=== PATIENT | male | born 2000 | race Caucasian/White ===

== ENCOUNTER 2022-06-07 10:00 | Outpatient (RCR) | payer OTHER, SELFPAY ==
--- NOTE | 2021-08-10 13:57 | MHC.SP.ADU ---
Referring provider: Andrzej Cosme MD Reason for Referral: Stuttering Type of Treatment: 21392 Evaluation of Speech Fluency Date of Plan of Treatment: 08/09/21 Onset of Symptoms/Illness: 04/24/02 Date Treatment Started: 08/09/21 Medical Diagnosis: N/A Primary Speech Language Diagnosis: R47.82 Fluency History Christos is a 20 year old male referred for a speech evaluation by Andrzej Cosme MD due to concerns pertaining to his fluency. Christos was accompanied to this evaluation by his mother, who assisted in providing background information. 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 Infancy was marked by low weight, NICU stay for 2.5 months, breathing problems, jaundice, feeding difficulties, and placement of a feeding tube. Christos was evaluated by an [facility] hospital superintendent when he was 11 years old and was diagnosed with Central Auditory Processing Disorder at that time based on ?his difficulties with auditory closure, binaural separation, and binaural integration. Christos reports he is generally healthy without any new medical diagnoses. Christos?s participation in speech therapy is extensive, dating back to Early Intervention. Christos?s mother recalls that he had begun to stutter at 18-24 months old, and reported that there is history of stuttering in the family. Per Christos, he continued with speech therapy through elementary, middle, and high school. Christos then participated in outpatient speech therapy at the [facility] from June 2018-December 2019. Christos has since graduated high school, began attending college at [employer], and has gotten a job. Christos reports that, in the last one to two years, his stuttering has become a lot worse and believes that the isolation during this pandemic is a contributing factor. He stated that it is difficult for him to get a full sentence out, especially when the listener appears to be impatient. Christos reports that at times, he avoids certain speaking situations, such as talking on the phone, because he knows it will cause him trouble. Reported Speech, Language, Cognition difficulties: Speaking Comments: Fluency Assessment FLUENCY: Speech samples were collected during this evaluation and analyzed using the Stuttering Severity Instrument ? 4th Edition (SSI-4). Christos was provided with a written paragraph and was instructed to read aloud. A speaking sample was also collected during a picture description task. Reading and speaking samples were recorded, transcribed, and analyzed for frequency and type of disfluencies, detailed below: READING SAMPLE: Stuttering Events: 38 Number of Syllables: 378 Percent of Stuttered Syllables (%SS): 10.05% Analysis of Disfluency Type (Reading Sample): Interjections (i.e. uhm, uh): 0% Sound/Syllable Repetitions: 31.6% Word Repetitions: 7.9% Phrase Repetitions: 7.9% Revision: 0% Block: 42.1% Sound Prolongation: 10.5% SPEAKING SAMPLE: Stuttering Events: 21 Number of Syllables: 150 Percent of Stuttered Syllables (%SS): 14% Analysis of Disfluency Type (Speaking Sample): Interjections (i.e. uhm, uh): 4.8% Sound/Syllable Repetitions: 28.6% Word Repetitions: 4.8% Phrase Repetitions: 9.5% Revision: 0% Block: 52.4% Sound Prolongation: 0% FREQUENCY SCORE: 15 DURATION SCORE: 6 PHYSICAL CONCOMITANTS SCORE: 4 TOTAL SCORE: 25 PERCENTILE: 41-60 SEVERITY: MODERATE Christos?s dysfluencies are characterized by blocking (i.e. holding of articulatory posture with tension and pausing), sound prolongations (i.e. ?sssss-tudying?), part-word repetitions (i.e. sound repetitions such as ?i-f-h-forklift? and syllable repetitions such as ?al-al-also?), whole word repetitions (i.e. ?its-its-its?), and phrase repetitions (i.e. ?and there?s-and there?s?). These stuttering events contributed to unnatural pausing, halted his speech flow, and significantly impacted his perceived speech naturalness. Also noted oddities in the coordination of breathing for speech. Christos?s mother corroborated these observations, stating, ?Christos seems to take more pauses to breathe in during a sentence.? Christos presented with a moderately rapid rate of speech. Christos was observed to stutter more during a reading task versus a speaking task, as the words in the written text were obligatory. Christos presented with minimal physical concomitants, which could be barely noticeable to a casual observer. This included the avoidance of eye contact and presence of visible jaw tension. Secondary behaviors are triggered by the experience of stuttering or anticipation of it. Although individuals who stutter use them in an attempt to terminate the stutter, they are often maladaptive and exacerbate core disfluent behaviors. 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 This has a strong impact on his socioemotional wellbeing. Therefore, it is recommended that he participate in 1:1 speech and language intervention 1x weekly for 8 weeks to practice strategies for improved fluency. Recommendation for Speech Therapy: Outpatient Speech Therapy Frequency/Duration: 1x weekly x 8 weeks Date Range for Service Requested: Time to Reassess: 6 months Technology Engineer Goals: Christos will increase his overall fluency and speech naturalness. Short Term Goals: Goal # : 1.1. Christos will participate in ongoing education and discussion regarding developmental stuttering throughout his course in treatment with 100% participation. Goal Status: New Goal Goal# : 1.2. Christos will be able to correctly identify location of physical tension during 80% of stuttering episodes in a structured task. Goal Status: New Goal Goal # : 1.3. Christos will improve his overall fluency during highly structured practice (in the production of short phrases and sentences) utilizing fluency shaping techniques (diaphragmatic breathing, slowing rate of speech, light articulatory contact, stretching) in 4 out of 5 trials with moderate level cueing and models. Goal Status: New Goal Goal # : 1.4. Christos will improve his overall fluency during highly structured practice (in the production of short phrases and sentences) utilizing stuttering modification techniques (cancellation, pull-out, preparatory set) in 4 out of 5 trials with moderate level cueing and models. Goal Status: New Goal Patient Education: Completed: Yes Patient/Caregiver Education: Described Results of Evaluation Patient expressed understanding of evaluation Family/Caregivers expressed understanding of results Comments/Barriers to Learning: It was a pleasure to work with Christos. If you have any questions about the contents of this report, do not hesitate to contact me at [phone] or [email or web address]. Engraver Apprentice Decorative Clinican/Clinical Fellow: No Supervisory Statement: N/A Speech Language Pathologist: Jojo Chu M.A., CCC-CLAIM MANAGER
== END 2022-07-07 12:43 | disposition home or self-care (01) ==
LOC: HO.SH 10:00
PROVIDERS: Visit Provider Pediatrics
DX: F80.81 Childhood onset fluency disorder (principal)
CPT/HCPCS: 92507; 92521

== ENCOUNTER 2023-01-16 10:03 | Outpatient (AMB) | payer OTHER, SELFPAY ==
--- NOTE | 2023-01-16 11:52 | MHC.OFFWIV ---
Intake Vital Signs 01/16/23 12:00 Height 5 ft 8 in Weight 59.874 kg BMI 20.1 BP 126/78 Blood Pressure Location Lt brachial Position Sitting Pulse 79 Pulse Source Pulse Oximeter Temp 97.9 F Temp Source Oral Pulse Oximetry (%) 94 Oxygen Delivery Method Room Air Intake Visit Reasons: EP, left ear pain [phone] Intake Note: Patient is here todat for Lt ear pain, pt states it started Monday night Patient Tobacco Use Status: Never used Tobacco Allergies No Known Allergies Allergy (Verified 01/16/23 11:53) Do you need a note to return to daycare/school/sports/work: No HPI EP, left ear pain [phone] HPI Details Patient presents with a reduced hearing, pain and fullness sensation in the left ear. He also notes some redness behind the ear with tenderness. He denies congestion or upper respiratory symptoms no symptoms in the right ear. Denies fever, ear drainage, ear trauma. PFSH Social History Patient Tobacco Use Status: Never used Tobacco Review of Systems Const Reports as per HPI and Reports no additional complaints ENT Reports no additional complaints and Reports as per HPI Skin/Breast Denies lesions Neuro Reports no additional complaints and Reports as per HPI Physical Exam Vital Signs: Last Vital Signs Temp 97.9 F 01/16/23 12:00 Pulse 79 01/16/23 12:00 BP 126/78 01/16/23 12:00 Pulse Ox 94 01/16/23 12:00 Oxygen Delivery Method Room Air 01/16/23 12:00 BMI result Body Mass Index 20.1 Const General: cooperative, comfortable and no acute distress Orientation/consciousness: patient oriented x3 HEENT Ears: TM normal on the right, no periauricular adenopathy, Abnormal EAC present (Left) cerumen impaction, edema and EAC tenderness (There is a small pustule posterior canal) on the left, external ear abnormal auricular tenderness, pain with movement of external ear and other (Mild erythema and edema 2 cm behind the fold of the posterior no abscess noted) and unable to visualize TM Face and sinus: Yes normal facial exam Mouth: oropharynx normal Resp Effort & Inspection: normal respiratory effort Auscultation: clear to auscultation bilaterally Cardio Rate: regular rate Rhythm: regular rhythm Heart sounds: S1 normal heart sound present and S2 normal heart sound present Neuro General: patient oriented x3 Office Procedures Cerumen Removal From which ear canal was the cerumen removed: left Removal: irrigation and other (Unable to clear cerumen due to patient discomfort, small amount of bleeding from pustule in canal) [id number] Irrigation/Lavage Assessment & Plan Assessment & Plan (1) Cellulitis of ear canal: Code(s): H60.10 - Cellulitis of external ear, unspecified ear Qualifiers: Laterality: left Qualified Code(s): H60.12 - Cellulitis of left external ear Plan: Will start patient on course of Augmentin. Can use OTC NSAIDs as needed. Return to clinic if symptoms do not resolve in 2-3 days. ER if he develops worsening pain swelling or fever (2) Cerumen impaction: Code(s): H61.20 - Impacted cerumen, unspecified ear Qualifiers: Laterality: left Qualified Code(s): H61.22 - Impacted cerumen, left ear Plan: Patient can use earwax softener as needed if hearing does not improve return to clinic for another attempt at irrigation when he has less pain in his ear canal. Medications: New amoxicillin-pot clavulanate 875-125 mg 1 tab PO Q12H 10 days 20 tabs 0RF Coding Level of Care Code Est Pt Level 3 (49997) Diagnoses Cellulitis of left ear canal H60.12 Laterality: left Impacted cerumen of left ear H61.22 Laterality: left CPT Codes Office Procedure - CPT: 18617-Slz Irrigation/Lavage ([id number])
[2023-01-16 12:00] VITALS: BP 126/78; PULSE 79; TEMP 36.6; O2SAT 94; BMI 20.1
== END 2023-01-16 12:26 | disposition home or self-care (01) ==
PROVIDERS: PCP Internal Medicine; Visit Provider Physician Assistant
DX: H60.12 Cellulitis of left external ear (principal); H61.22 Impacted cerumen, left ear
CPT/HCPCS: 69209; 99213

== ENCOUNTER 2023-03-14 13:01 | Outpatient (AMB) | payer OTHER, SELFPAY ==
[2023-03-14 13:15] VITALS: BP 130/78; PULSE 68; TEMP 36.2; O2SAT 98; BMI 19.8
--- NOTE | 2023-03-14 13:15 | AM.OFFWIN_ITS ---
Intake Vital Signs 03/14/23 13:15 Height 5 ft 8 in Weight 58.967 kg BMI 19.8 BP 130/78 Blood Pressure Location Rt brachial Position Sitting Pulse 68 Pulse Source Pulse Oximeter Temp 97.1 F Pulse Oximetry (%) 98 Oxygen Delivery Method Room Air Intake Visit Reasons: EST/blood shot eyes, sinus pressure [phone] Intake Note: pt is here today blood shot eye, sinus pressure started monday Patient Tobacco Use Status: Never used Tobacco Allergies No Known Allergies Allergy (Verified 03/14/23 13:16) Do you need a note to return to daycare/school/sports/work: No HPI HPI Comments History of Present Illness Details 22 -year-old male who presents with fat igue, malaise, myalgias, blood shot eyes, sinus congestion, subjective fevers and chills that started X1 week. Dad rsv _ .? Denies chest pain, shortness of breath, nausea, vomiting, abdominal pain, headache vision change, dizziness, weakness, changes in bowel or urinary habits Physical exam benign History and physical exam concerning for viral illness versus bronchitis versus flu versus COVID versus RSV vs sinusitis ( most likely).? Unlikely pneumonia, ACS, dissection, pulmonary embolism, acute respiratory distress Plan at this time viral testing will discharge patient home with atbx for sinusitis.? Educated patient on diagnosis and treatment plan, answered all question, patient verbalizes understanding.? At this time patient will be discharged home, advised to return with new or worsening symptoms.? Educated on worrisome signs and symptoms and when to return.? At this time I feel comfortable discharge home. PFSH Social History Patient Tobacco Use Status: Never used Tobacco Review of Systems Const Details: Constitutional : No Weight loss, No Fever, No Chills, + Fatigue, + Malaise ENT/Mouth : No sore throat, No Rhinorrhea, + congestion Eyes: No Eye Pain, No Swelling, + Redness Cardiovascular : No Chest Pain, No SOB, No Dyspnea on Exertion, No Orthopnea, No Edema, No Palpitations Respiratory : No Cough, No Sputum, No Wheezing Gastrointestinal : No Nausea, No Vomiting, No Diarrhea, No Constipation, No abdominal Pain, No Hematochezia, No Melena Genitourinary : No Dysuria, No Urinary Frequency, No Hematuria, Musculoskeletal : No joint pain, No Myalgias, No Joint Swelling Skin : No Skin Lesions, No rash Neuro : No Weakness, No Numbness, No Dizziness, No Headache Psych : No Anxiety/Panic, No Depression All other systems reviewed and are negative All systems reviewed & are unremarkable except as noted in HPI and below Physical Exam Vital Signs: Last Vital Signs Temp 97.1 F 03/14/23 13:15 Pulse 68 03/14/23 13:15 BP 130/78 03/14/23 13:15 Pulse Ox 98 03/14/23 13:15 Oxygen Delivery Method Room Air 03/14/23 13:15 BMI result Body Mass Index 19.8 vss Appearance: Alert.? Oriented X3.? No acute distress.? Head: Normocephalic, atraumatic, no step-offs or deformities Eyes: Pupils equal, round and reactive to light.?b/l conjunctival injection ENT: Pharynx normal.? Neck: Normal inspection.? Neck supple.? CVS: Normal heart rate and rhythm.? Pulses normal.? Respiratory: No respiratory distress.? Breath sounds normal.? Skin: Skin warm and dry.? Normal skin color.? Normal skin turgor.? Extremities: No lower extremity edema.? No calf ttp. 5/5 strength to bilateral upper and lower extremities Neuro: Oriented X 3.? No motor deficit.? No sensory deficit. CN 2-12 intact Assessment & Plan Assessment & Plan (1) Viral illness: Code(s): B34.9 - Viral infection, unspecified Plan Take your medications as prescribed. If you were prescribed antibiotics today, it is important that you take your medication to their entirety, do not skip any doses, do not finish them early. Follow-up with your primary care provider this week. Return to the emergency department with new or worsening symptoms. Such as fevers, chills, chest pain, shortness of breath, nausea, vomiting, dizziness, headache, vision changes, lethargy In case of emergency call 911 Medications: New prednisone 40 mg (2 x 20 mg) PO DAILY 10 tabs 0RF 5 days amoxicillin-pot clavulanate 875-125 mg 1 tab PO BID 20 tabs 0RF 10 days albuterol sulfate 90 mcg/actuation 2 puffs inhalation Q6H PRN 6.7 grams 0RF shortness of breath or wheezing Coding Level of Care Code Est Pt Level 3 (59822) Diagnoses Viral illness B34.9
== END 2023-03-14 14:03 | disposition home or self-care (01) ==
PROVIDERS: PCP Internal Medicine; Visit Provider Physician Assistant
DX: B34.9 Viral infection, unspecified (principal)
CPT/HCPCS: 99213

== ENCOUNTER 2023-03-14 16:41 | Outpatient (REF) | payer OTHER, SELFPAY ==
[2023-03-15 12:39] LABS: Influenza A PCR NEGATIVE (Negative); Influenza B PCR NEGATIVE (Negative); Resp Syncy Virus RNA Qual PCR NEGATIVE (Negative); SARS COV2 PCR INHOUSE NEGATIVE (Negative)
== END 2023-03-14 16:42 | disposition home or self-care (01) ==
LOC: HO.LAB 16:41
PROVIDERS: Visit Provider Physician Assistant
DX: R09.89 Other specified symptoms and signs involving the circulatory and respiratory systems (principal); Z11.52 Encounter for screening for COVID-19
CPT/HCPCS: 0241U

== ENCOUNTER 2023-05-05 09:49 | Outpatient (AMB) | payer OTHER, SELFPAY ==
--- NOTE | 2023-05-05 09:58 | MHC.PC.OV ---
Vital Signs 05/05/23 10:11 Height 5 ft 8 in Weight 135 lb BMI 20.5 BP 112/72 Blood Pressure Location Rt brachial Position Sitting Pulse 71 Pulse Source Pulse Oximeter Pulse Oximetry (%) 99 Oxygen Delivery Method Room Air Intake Visit Reasons: New patient- requesting physical Intake Note: Pt is here today as a New Patient and is requesting a PE Allergies No Known Allergies Allergy (Verified 05/05/23 10:31) Medication List - Last Reconciled 05/05/23 by Alis Alanis MD No Known Home Meds Tobacco use date assessed: 05/05/23 Dental Screening Dental Screen Date: 05/05/23 Did you have a dental visit in the last 12 months?: Yes Did you have a dental problem in the last 6 months where you did not have access to dental care?: No Was dental information given to patient?: Patient has dentist HPI New patient- requesting physical HPI Details 22-year-old lady here today as a new patient, requesting a physical exam. He has had a starter since childhood, otherwise no known past medical history or past surgical history. Has no complaints at present time. [facility] Medical History (Updated 05/07/23 @ 22:53 by Alis Alanis MD) Stutterings Surgical History (Updated 05/05/23 @ 10:42 by Alis Alanis MD) History of tonsillectomy Family History (Updated 05/05/23 @ 10:14 by Bharati Moreno CMA) Father Substance use disorder Mental health disorder Social History (Updated 05/05/23 @ 10:43 by Alis Alanis MD) Housing: House Patient Tobacco Use Status: Never used Tobacco e-Cigarette/Vaping Use: Never Used service: No Current occupational status: employed Current occupation: Part-time at [employer] Cognitive needs: No Hearing needs: No Vision needs: No Questionnaire PHQ-9 Over the last 2 weeks, how often have you been bothered by any of the following problems? 1. Little interest or pleasure in doing things: not at all 2. Feeling down, depressed, or hopeless: not at all 3. Trouble falling or staying asleep, or sleeping too much: not at all 4. Feeling tired or having little energy: not at all 5. Poor appetite or overeating: not at all 6. Feeling bad about yourself - or that you are a failure or have let yourself or your family down: not at all 7. Trouble concentrating on things, such as reading the newspaper or watching television: not at all 8. Moving or speaking so slowly that other people could have noticed. Or the opposite - being so fidgety or restless that you have been moving around a lot more than usual: not at all 9. Thoughts that you would be better off or of hurting yourself in some way: not at all Total score: 0 Depression Screening Interpretation: Negative Depression Screening Done: Yes 33877 - PHQ-9 Billing: Yes Source: Developed by Drs. Aleksander Garcia, Shiloh Walker, Tru Khan and colleagues, with an educational hanh from [employer]. Thrive Questionnaire Date Thrive assessed: 05/05/23 I am a: Patient What is your living situation today?: I have a steady place to live Within the past 12 months, did the food you bought not last and you didn't have the money to get more?: Never true Within the past 12 months, did you worry whether your food would run out before you got money to buy more?: Never true Do you have trouble paying for medicines?: No Do you have trouble getting transportation to medical appointments?: No Do you have trouble paying your heating and electricity bill?: No Do you have trouble taking care of your child, family member or friend?: No Do you have trouble with day-to-day activities such as bathing, preparing meals, shopping, managing finances, etc.?: No Are you currently unemployed and looking for a job?: No Are you interested in more education?: No THRIVE Score: 0 AUDIT C Alcohol Use Questionnaire (AUDIT-C) 1. How often do you have a drink containing alcohol?: Never Total Score: 0 VERN-7 AMB Questionnaire VERN-7 Date VERN - 7 assessed: 05/05/23 Feeling nervous, anxious, or on edge: 0 = Not at all Not being able to stop or control worryin = Not at all Worrying too much about different things: 0 = Not at all Trouble relaxin = Not at all Being so restless that it is hard to sit still: 0 = Not at all Becoming easily annoyed or irritable: 0 = Not at all Feeling afraid as if something awful might happen: 0 = Not at all Total VERN-7 score (0-4 normal; 5-9 mild; 10-14 moderate; 15-21 severe): 0 Source: Developed by Drs. Aleksander Garcia, Shiloh Walker, Tru Khan and colleagues, with an educational hanh from [employer]. VERN-7 Assessment Billing VERN-7 Assessment Tool: VERN-7 Assessment 28277 Review of Systems Const Denies body aches, Denies fatigue, Denies fever(s), Denies headache(s) and Denies weakness Eyes Denies change in vision, Denies eye discharge and Denies itchy eyes ENT Denies dizziness, Denies headache(s), Denies nasal congestion, Denies nasal discharge and Denies sore throat Card Denies chest pain, Denies lightheadedness, Denies palpitations and Denies dyspnea Resp Denies chest congestion, Denies cough, Denies dyspnea and Denies wheezing GI Denies abdominal pain, Denies change in bowel habits and Denies heartburn Denies hematuria, Denies difficulty urinating, Denies dysuria, Denies urinary frequency and Denies urinary urgency Musc Reports no additional complaints Skin/Breast Denies breast pain, Denies breast mass, Denies lesions and Denies rash Neuro Denies dizziness, Denies headache(s) and Denies weakness Psych Reports no additional complaints Endo Denies fatigue, Denies polydipsia, Denies polyuria and Denies palpitations Santhosh/Lymph Denies easy bruising Aller/Immun Denies itchy eyes, Denies seasonal rhinorrhea and Denies wheezing Physical exam (Primary Care) Vital Signs: Last Vital Signs Pulse 71 05/05/23 10:11 BP 112/72 05/05/23 10:11 Pulse Ox 99 05/05/23 10:11 Oxygen Delivery Method Room Air 05/05/23 10:11 BMI result Body Mass Index 20.5 Tobacco/Smoking Status: Tobacco use Status Tobacco use date assessed 05/05/23 05/05/23 10:12 Patient Tobacco Use Status Never used Tobacco 05/05/23 10:43 e-Cigarette/Vaping Use Never Used 05/05/23 10:43 PHQ-9: PHQ-9 Score PHQ-9: Total score 0 05/05/23 11:01 Depression Screening Interpretation: Negative Thrive Assessment: Date of Thrive Assessment Date Thrive assessed 05/05/23 05/05/23 10:23 Const General: no acute distress and alert Orientation/consciousness: patient oriented x3 [facility] Head: Yes normocephalic Ears: external ears normal, TM's normal bilaterally and EAC's normal General nose exam: Normal external nose present and No nasal discharge present Face and sinus: Yes face symmetric Mouth: Normal oral and palatal mucosa present, tongue normal, oropharynx normal and moist mucous membranes Eyes General: appearance normal, both eyes and all related structures Eyelids: Yes eyelids normal Conjunctivae: conjunctivae normal Sclerae: sclerae normal Pupils: Equal, round and reactive pupils present EOM: EOMs intact bilaterally Neck Neck: Yes full ROM, Yes no lymphadenopathy and Yes supple Thyroid: Thyroid normal Resp Effort & Inspection: normal respiratory effort and able to speak in complete sentences Auscultation: clear to auscultation bilaterally Cardio Rate: regular rate Rhythm: regular rhythm Heart sounds: S1 normal heart sound present and S2 normal heart sound present GI Palpation (GI): Soft to palpation, nontender, no guarding and no masses Auscultation: normal bowel sounds General: Yes no CVA tenderness Male General Exam: No hernia Scrotum: no hydroceles and no inguinal hernias Testes: no testicular mass Back/Spine/Pelvis Back: no CVA tenderness and No back tenderness Skin General skin exam: no rashes or lesions noted Neuro General: patient oriented x3, gait normal, moves all extremities, Normal light touch and pain sensation, no focal motor deficits and CN's II-XI intact bilaterally Cranial nerves: Yes Equal, round and reactive pupils present Cognition (Neuro): normal cognition Speech: Other speech findings present (Neuro) (Stuttering) Gait exam (Neuro): Normal gait present Motor exam (neuro): 5/5 motor strength present throughout Extrem General: Yes normal to inspection, Yes full ROM, Yes no joint enlargement, Yes no pedal edema and Yes normal gait Psych Appearance: grossly normal and well kempt Mental Status: mental status grossly normal Affect: normal affect Attitude: cooperative Thought process: Normal thought process present Thought content: Normal thought content present Immunizations Boostrix Tdap 2.5 Lf unit-8 mcg-5 Lf/0.5 mL intramuscular syringe Performing Provider: Alis Alanis MD Performing Location: [facility] Administered by: Bharati Moreno CMA on 05/05/23 11:01 Dose Route Admin Location Dispensed Lot Number Expiration Date NDC [employer] 0.5 mL IM Right Deltoid 0.5 mL [id number] 05/09/25 56926-520-30 [employer] VIS Given Date VIS Provided VIS Publication Date 05/05/23 Single Vaccine 20 Eligibility Eligibility Date Funding Source Not [facility] Eligible 05/05/23 Private Assessment and Plan Assessment & Plan (1) Annual visit for general adult medical examination with abnormal findings: Code(s): Z00.01 - Encounter for general adult medical examination with abnormal findings Plan: Will check appropriate labs. Recommended dental visit every 6 months and regular eye exams, at least every 2 years. Take adequate calcium in diet and vitamin-D 3 at 2000 IU per cap once a day, in addition to weight-bearing exercises to help maintain good muscle tone and weight control. Instructed to do self-testicular exam to check for any mass has had COVID vaccines has not interested and booster, reminded to get his shot, Tdap given today Orders: Orders Complete Blood Count Auto Diff 05/05/23 Z00.01 - Encounter for general adult medical examination with abnormal findings, Z13.1 - Encounter for screening for diabetes mellitus, Z13.220 - Encounter for screening for lipoid disorders TDaP Immunization 05/05/23 Z23 - Encounter for immunization Basic Metabolic Panel Fasting 05/05/23 Z00.01 - Encounter for general adult medical examination with abnormal findings, Z13.1 - Encounter for screening for diabetes mellitus, Z13.220 - Encounter for screening for lipoid disorders Lipid Panel 05/05/23 Z00.01 - Encounter for general adult medical examination with abnormal findings, Z13.1 - Encounter for screening for diabetes mellitus, Z13.220 - Encounter for screening for lipoid disorders Alanine Aminotransferase 05/05/23 Z00.01 - Encounter for general adult medical examination with abnormal findings, Z13.1 - Encounter for screening for diabetes mellitus, Z13.220 - Encounter for screening for lipoid disorders Aspartate Amino Transferase 05/05/23 Z00.01 - Encounter for general adult medical examination with abnormal findings, Z13.1 - Encounter for screening for diabetes mellitus, Z13.220 - Encounter for screening for lipoid disorders Vitamin D 25-OH Total 05/05/23 Z00.01 - Encounter for general adult medical examination with abnormal findings, Z13.1 - Encounter for screening for diabetes mellitus, Z13.220 - Encounter for screening for lipoid disorders Coding Level of Care Code New Pt Prev Care 18-39yr([id number] Diagnoses Annual visit for general adult medical examination with abnormal findings Z00.01 Additional Codes VERN-7 Assessment Billing - VERN-7 Assessment Tool: VERN-7 Assessment 87052 ([id number])
[2023-05-05 10:11] VITALS: BP 112/72; PULSE 71; O2SAT 99; BMI 20.5
== END 2023-05-05 12:02 | disposition home or self-care (01) ==
PROVIDERS: PCP Internal Medicine; Visit Provider Internal Medicine
DX: Z00.00 Encounter for general adult medical examination without abnormal findings (principal)
CPT/HCPCS: 90471; 90715; 99385

== ENCOUNTER 2023-05-05 11:03 | Outpatient (REF) | payer OTHER, SELFPAY ==
[2023-05-05 13:11] LABS: MANUAL DIFF FLAG NO
[2023-05-05 13:32] LABS: Basophils Percent Auto 0.7 % (0-2); Eosinophils Absolute Auto 0.1 X10*3/uL (0.0-0.4); Eosinophils Percent Auto 2.3 % (0-4); Hematocrit 42.1 % (42.0-52.0); Hemoglobin 14.3 g/dl (14.0-18.0); Imm Gran Abs Auto 0.01 X10*3/uL (0.00-0.03); Imm Gran Pct Auto 0.2 % (0.0-0.4); Lymphocytes Absolute Auto 2.2 X10*3/uL (1.2-4.9); Lymphocytes Percent Auto 38.6 % (20-40); Mean Corpuscular Hemoglobin 30.6 pg (27.0-33.0); Mean Platelet Volume 10.7 fL (9.4-12.4); Monocytes Absolute Auto 0.5 X10*3/uL (0.1-1.2); Monocytes Percent Auto 7.9 % (2-11); Neutrophils Absolute Auto 2.9 x10*3/uL (2.0-8.3); Neutrophils Percent Auto 50.3 % (45-73); Platelet Count 253 X10*3/uL (160-400); Red Blood Count 4.68 X10*6/uL (4.60-5.80); Red Cell Distribution Width 13.1 % (11.0-16.0); White Blood Count 5.7 X10*3/uL (4.8-10.8)
[2023-05-05 14:15] LABS: Alanine Aminotransferase 12 U/L (0-40); Anion Gap 11 (12-20); Aspartate Amino Transferase 14 U/L (5-37); Blood Urea Nitrogen 12 mg/dL (9-16); Calcium 9.4 mg/dL (8.4-10.2); Carbon Dioxide 27 mmol/L (22-29); Chloride 105 mmol/L (96-108); Cholesterol 125 mg/dL (<200); Estimated Glomerular Filt Rate > 60; Glucose Fasting 88 mg/dL (60-99); HDL Cholesterol 47 mg/dL (>40); LDL Cholesterol Calculated 64 mg/dL (<100); Potassium 3.7 mmol/L (3.3-5.1); Sodium 139 mmol/L (135-145); Triglycerides 71 mg/dL (<150)
[2023-05-05 14:34] LABS: Vitamin D 25-OH Total 42.7 ng/mL (>30)
== END 2023-05-05 11:04 | disposition home or self-care (01) ==
LOC: HO.HMGCLDS 11:03
PROVIDERS: PCP Internal Medicine; Visit Provider Internal Medicine
DX: Z00.01 Encounter for general adult medical examination with abnormal findings (principal); Z13.220 Encounter for screening for lipoid disorders; Z13.1 Encounter for screening for diabetes mellitus
CPT/HCPCS: 36415; 80048; 80061; 82306; 84450; 84460; 85025